=== PATIENT | male | born 1980 | race Caucasian/White ===

== ENCOUNTER 2016-07-18 09:39 | Emergency (ER) | payer OTHER ==
[2016-07-18 12:40] VITALS: BP 157/99
--- NOTE | 2016-07-18 14:11 | UC ---
Back Pain HPI - HPI Summary HPI Summary: SHOVELING LAST NIGHT, GRADUALLY BEGAN TO HAVE HAD LOW BACK PAIN, RADIATES TO LEFT SCAPULA. NO LOSS OF CONTROL OF BLADDER OR BOWELS. - History of Current Complaint Chief Complaint: UCBackPain Stated Complaint: LOWER BACK PAIN Time Seen by Provider: 07/18/16 12:50 Hx Obtained From: Patient Onset/Duration: Gradual Onset, Lasting Hours, Still Present Timing: Intermittent, Lasting Hours Severity Initially: Moderate Severity Currently: Moderate Pain Intensity: 5 Pain Scale Used: 0-10 Numeric Back Pain: Is Discrete @ - LOW BACK, Radiates To - LEGS, MID BACK Character: Aching, Spasmodic Aggravating: Movement, Bending Associated Signs And Symptoms: Negative: Fever, Weakness, Numbness, Tingling, Abdominal Pain, Flank Pain, Bladder Incontinence, Bowel Incontinence, Pain with Weight Bearing - Risk Factors TAD Risk Factors: Negative Cauda Equina Risk Factors: Negative Epidural Abscess Risk Factors: Negative - Allergies/Home Medications Allergies/Adverse Reactions: Allergies Allergy/AdvReac Type Severity Reaction Status Date / Time No Known Allergies Allergy Verified 11/19/13 12:56 PMH/Surg Hx/FS Hx/Imm Hx Previously Healthy: Yes Endocrine History Of: Denies: Diabetes, Thyroid Disease Cardiovascular History Of: Denies: Cardiac Disorders, Hypertension Respiratory History Of: Denies: COPD, Asthma GI/ History Of: Denies: Ulcer - Surgical History Surgical History: None - Family History Known Family History: Negative: Renal Disease - Social History Occupation: Employed Full-time Lives: With Family Alcohol Use: Rare Substance Use Type: None Smoking Status (MU): Current Every Day Smoker Cessation Counseling: Patient Advised to Stop Review of Systems Constitutional: Negative Skin: Negative Eyes: Negative ENT: Negative Respiratory: Negative Cardiovascular: Negative Gastrointestinal: Negative Genitourinary: Negative Motor: Negative Neurovascular: Negative Musculoskeletal: Arthralgia, Myalgia Neurological: Negative Psychological: Negative All Other Systems Reviewed And Are Negative: Yes Physical Exam Triage Information Reviewed: Yes Appearance: Well-Appearing, Well-Nourished, Pain Distress - MODERATE Vital Signs: Initial Vital Signs Temp 98.2 F 07/18/16 12:37 Pulse 88 07/18/16 12:37 Resp 16 07/18/16 12:37 BP 157/99 07/18/16 12:37 Pulse Ox 97 07/18/16 12:37 Vital Signs Reviewed: Yes Eye Exam: Normal ENT Exam: Normal ENT: Positive: Normal ENT inspection, Hearing grossly normal, TMs normal Dental Exam: Normal Neck exam: Normal Respiratory Exam: Normal Respiratory: Positive: Chest non-tender, Lungs clear, Normal breath sounds, No respiratory distress Cardiovascular Exam: Normal Cardiovascular: Positive: RRR, No Murmur, Pulses Normal, Brisk Capillary Refill Abdominal Exam: Normal Abdomen Description: Positive: Nontender, No Organomegaly. Negative: CVA Tenderness (R), CVA Tenderness (L) Musculoskeletal: Positive: ROM Intact, Other: - POSITIVE STRAIGHT LEG RAISE TEST L =20 DEGREES, RIGHT = 30 DEGREES Neurological Exam: Normal Psychological Exam: Normal Psychological: Positive: Normal Response To Family Skin Exam: Normal Back Pain Course/Dx - Differential Dx/Diagnosis Differential Diagnosis/HQI/PQRI: Strain, Sprain Provider Diagnoses: LOW BACK STRAIN/SCIATICA Discharge - Discharge Plan Condition: Stable Disposition: HOME Prescriptions: Carisoprodol TAB* [Soma TAB*] 350 mg PO TID PRN #12 tab MDD three tabs PRN Reason: Spasms HYDROcodone/ACETAMIN 5-325 MG* [Foley 5-325 TAB*] 1 tab PO Q8H PRN #12 tab MDD three tabs PRN Reason: Pain Naproxen [Naproxen 500 MG TABS] 500 mg PO BID #10 tab Patient Education Materials: Sciatica (ED), Acute Low Back Pain (ED), Muscle Spasm (ED) Referrals: [facility] [place] [facility] [Outside] Non Staff,Doctor [Primary Care Provider] - Additional Instructions: PHYSICAL THERAPY REFERRAL: You have been prescribed physical therapy. Treatments may include stretching, exercise, application of heat or cold, and other modalities. After an injury, PT can reduce swelling and pain. In recovery, PT is used to restore mobility and strength. Your specific treatment goals are: ____x_ Reduction of Swelling (EGS, US, ice as needed) ___x__ Pain Reduction (EGS, US, ice as needed) ____x_ TENS Pack Fitting and Instruction Wound Hydrotherapy ____x_ Preservation of Mobility ____x_ Taoism of Mobility ___x__ Strength Taoism ___x__ Work or Sports Hardening This instruction sheet also serves as your PHYSICAL THERAPY REFERRAL! Please take it with you to the therapist, so he/she will be aware of your diagnosis and treatment plan. You may see the physical therapist of your choice for these treatments, but may wish to check with your insurance to be sure the provider you select is covered. It's important to see the doctor to whom you have been referred for follow up.
== END 2016-07-18 13:43 | disposition home or self-care (01) ==
LOC: UCEAST 09:39
DX: S39.012A Strain of muscle, fascia and tendon of lower back, initial encounter (principal); X50.3XXA Overexertion from repetitive movements, initial encounter; Y93.H1 Activity, digging, shoveling and raking; Y92.9 Unspecified place or not applicable; M54.40 Lumbago with sciatica, unspecified side; F17.210 Nicotine dependence, cigarettes, uncomplicated
CPT/HCPCS: 99201; G0463